=== PATIENT | male | born 1980 | race African-American/Black ===

== ENCOUNTER 2017-08-07 20:37 | Emergency (ER) | payer SELFPAY ==
[~2017-08-07] VITALS: Ht 185.4 cm; Wt 212.0 kg
[~2017-08-07 20:37] MED LIST: ALBU6.7H INH; AUGMENTIN PO; DOXY100T PO; PRED20 PO; Z.0.NO CURRENT MEDS
[2017-08-07 21:26] VITALS: BP 133/69; PULSE 105; RESP 23; TEMP 98.7; O2SAT 97
--- NOTE | 2017-08-07 21:28 | PD ---
HPI Chief Complaint: Complaint Time Seen by Provider: 21:19 Travel History International Travel<30 days: No Contact w/Intl Traveler<30days: No Traveled to known affect area: No History of Present Illness HPI 37-year-old male with recent history of CHF, hypertension, diabetes, presents emergency department for evaluation of swollen testicles. Patient states that 3 weeks ago he was "filling up with fluid." He had shortness of breath. He was discharged with Lasix which he has been taken however he ran out of these 3 days ago. He says since then he has developed worsening shortness of breath. He feels this is because he does not have inhaler. He tells me that his testicles have been swollen since his last episode of when he filled up with fluid, and they will not go down. He denies any injury. No significant pain. He has no urinary symptoms. He has no other symptoms to report. PFSH Past Medical History Cardiovascular Problems: Yes (HTN,) Diabetes: Yes (Metformin) Patient Takes Glucophage: Yes Hypertension: Yes Respiratory: Yes (Bronchitis) Tetanus Vaccination: < 5 Years Influenza Vaccination: No Past Surgical History Surgical History: No Previous Surgery Social History Alcohol Use: No Tobacco Use: No (quit 2 weeks ago 1PPD) Substance Use: Yes (Marijuana) Allergies-Medications (Allergen,Severity, Reaction): Coded Allergies: Sulfa (Sulfonamide Antibiotics) (Unverified Allergy, Unknown, 08/07/17) Reported Meds & Prescriptions Reported Meds & Active Scripts Active Proair Hfa 8.5 GM Inh (Albuterol Sulfate) 90 Mcg/Act Aer 2 Puff INH Q4HR PRN 108 mcg/actuation Potassium Chloride ER (Potassium Chloride) 20 Meq Tab 20 Meq PO DAILY Metformin (Metformin HCl) 1,000 Mg Tab 1,000 Mg PO BIDPC Lasix (Furosemide) 40 Mg Tab 40 Mg PO DAILY Reported Metformin (Metformin HCl) 1,000 Mg Tab 1,000 Mg PO BIDPC Levaquin (Levofloxacin) 500 Mg Tablet 500 Mg PO DAILY Lasix (Furosemide) 40 Mg Tab 40 Mg PO DAILY Potassium Chloride ER (Potassium Chloride) 20 Meq Tab 20 Meq PO DAILY Review of Systems Except as stated in HPI: all other systems reviewed are Neg Physical Exam Narrative GENERAL: Well-nourished male patient, ambulatory and in no acute distress SKIN: Focused skin assessment warm/dry. HEAD: Atraumatic. Normocephalic. EYES: Pupils equal and round. No scleral icterus. No injection or drainage. ENT: No nasal bleeding or discharge. Mucous membranes pink and moist. NECK: Trachea midline. No JVD. CARDIOVASCULAR: Elevated rate and rhythm. RESPIRATORY: No accessory muscle use. Diminished breath sounds equal bilaterally. GASTROINTESTINAL: Abdomen soft, non-tender, nondistended. Hepatic and splenic margins not palpable. GENITOURINARY: The testicles and shaft of the penis are edematous. No lesions or erythema. No urethral discharge. MUSCULOSKELETAL: No obvious deformities. No clubbing. No cyanosis. No edema. NEUROLOGICAL: Awake and alert. No obvious cranial nerve deficits. Motor grossly within normal limits. Normal speech. PSYCHIATRIC: Appropriate mood and affect; insight and judgment normal. Data Data Last Documented VS Vital Signs Date Time Temp Pulse Resp B/P (MAP) Pulse Ox O2 Delivery O2 Flow Rate FiO2 08/07/17 23:29 98.4 105 22 175/94 (121) 97 Nasal Cannula 2.00 Orders Orders Complete Blood Count With Diff (08/07/17 21:33) Comprehensive Metabolic Panel (08/07/17 21:33) B-Type Natriuretic Peptide (08/07/17 21:33) Act Partial Throm Time (Ptt) (08/07/17 21:33) Prothrombin Time / Inr (Pt) (08/07/17 21:33) Magnesium (Mg) (08/07/17 21:33) Ckmb (Isoenzyme) Profile (08/07/17 21:33) Troponin I (08/07/17 21:33) Iv Access Insert/Monitor (08/07/17 21:33) Electrocardiogram (08/07/17 21:33) Ecg Monitoring (08/07/17 21:33) Oximetry (08/07/17 21:33) Oxygen Administration (08/07/17 21:33) Chest, Single Ap (08/07/17 21:33) Sodium Chloride 0.9% Flush (Ns Flush) (08/07/17 21:45) Albuterol-Ipratropium Neb (Duoneb Neb) (08/07/17 21:45) Furosemide Inj (Lasix Inj) (08/07/17 23:00) Ed Discharge Order (08/07/17 23:28) Labs Laboratory Tests Test 08/07/17 21:05 White Blood Count 6.9 TH/MM3 Red Blood Count 5.68 MIL/MM3 Hemoglobin 14.4 GM/DL Hematocrit 45.4 % Mean Corpuscular Volume 79.9 FL Mean Corpuscular Hemoglobin 25.3 PG Mean Corpuscular Hemoglobin Concent 31.6 % Red Cell Distribution Width 15.8 % Platelet Count 334 TH/MM3 Mean Platelet Volume 7.4 FL Neutrophils (%) (Auto) 64.2 % Lymphocytes (%) (Auto) 20.8 % Monocytes (%) (Auto) 12.7 % Eosinophils (%) (Auto) 1.5 % Basophils (%) (Auto) 0.8 % Neutrophils # (Auto) 4.4 TH/MM3 Lymphocytes # (Auto) 1.4 TH/MM3 Monocytes # (Auto) 0.9 TH/MM3 Eosinophils # (Auto) 0.1 TH/MM3 Basophils # (Auto) 0.1 TH/MM3 CBC Comment DIFF FINAL Differential Comment Prothrombin Time 12.7 SEC Prothromb Time International Ratio 1.3 RATIO Activated Partial Thromboplast Time 26.6 SEC Blood Urea Nitrogen 8 MG/DL Creatinine 1.07 MG/DL Random Glucose 139 MG/DL Total Protein 8.0 GM/DL Albumin 3.0 GM/DL Calcium Level 8.7 MG/DL Magnesium Level 1.7 MG/DL Alkaline Phosphatase 80 U/L Aspartate Amino Transf (AST/SGOT) 27 U/L Alanine Aminotransferase (ALT/SGPT) 18 U/L Total Bilirubin 1.1 MG/DL Sodium Level 142 MEQ/L Potassium Level 4.3 MEQ/L Chloride Level 105 MEQ/L Carbon Dioxide Level 24.9 MEQ/L Anion Gap 12 MEQ/L Estimat Glomerular Filtration Rate 95 ML/MIN Total Creatine Kinase 99 U/L Troponin I 0.02 NG/ML B-Type Natriuretic Peptide 343 PG/ML [facility] Medical Decision Making Medical Screen Exam Complete: Yes Emergency Medical Condition: Yes Medical Record Reviewed: Yes Differential Diagnosis Hydrocele versus orchitis versus epididymitis versus CHF versus electrolyte abnormality versus pneumonia versus influenza versus bronchospasm Narrative Course 37-year-old male presents emergency department for evaluation. Patient appears short of breath. He does have diminished sounds throughout, possibly due to his size. His testicles and penis are also swollen. I discussed the patient with my attending physician who is also assessed the patient. We feel that the testicular edema secondary to fluid overload. Laboratory Tests Test 08/07/17 21:05 White Blood Count 6.9 TH/MM3 Red Blood Count 5.68 MIL/MM3 Hemoglobin 14.4 GM/DL Hematocrit 45.4 % Mean Corpuscular Volume 79.9 FL Mean Corpuscular Hemoglobin 25.3 PG Mean Corpuscular Hemoglobin Concent 31.6 % Red Cell Distribution Width 15.8 % Platelet Count 334 TH/MM3 Mean Platelet Volume 7.4 FL Neutrophils (%) (Auto) 64.2 % Lymphocytes (%) (Auto) 20.8 % Monocytes (%) (Auto) 12.7 % Eosinophils (%) (Auto) 1.5 % Basophils (%) (Auto) 0.8 % Neutrophils # (Auto) 4.4 TH/MM3 Lymphocytes # (Auto) 1.4 TH/MM3 Monocytes # (Auto) 0.9 TH/MM3 Eosinophils # (Auto) 0.1 TH/MM3 Basophils # (Auto) 0.1 TH/MM3 CBC Comment DIFF FINAL Differential Comment Prothrombin Time 12.7 SEC Prothromb Time International Ratio 1.3 RATIO Activated Partial Thromboplast Time 26.6 SEC Blood Urea Nitrogen 8 MG/DL Creatinine 1.07 MG/DL Random Glucose 139 MG/DL Total Protein 8.0 GM/DL Albumin 3.0 GM/DL Calcium Level 8.7 MG/DL Magnesium Level 1.7 MG/DL Alkaline Phosphatase 80 U/L Aspartate Amino Transf (AST/SGOT) 27 U/L Alanine Aminotransferase (ALT/SGPT) 18 U/L Total Bilirubin 1.1 MG/DL Sodium Level 142 MEQ/L Potassium Level 4.3 MEQ/L Chloride Level 105 MEQ/L Carbon Dioxide Level 24.9 MEQ/L Anion Gap 12 MEQ/L Estimat Glomerular Filtration Rate 95 ML/MIN Total Creatine Kinase 99 U/L Troponin I 0.02 NG/ML B-Type Natriuretic Peptide 343 PG/ML Last Impressions Chest X-Ray 08/07/172132 Signed Impressions: CONCLUSION: Negative examination. Findings are discussed with my attending physician. Patient is given 80 mg IV Lasix. He will be given a refill of his medication. He is encouraged to establish care with a primary care provider. He agrees to return immediately with acute worsening symptoms Diagnosis Primary Impression: Swollen testicle Additional Impression: CHF (congestive heart failure) Qualified Codes: I50.9 - Heart failure, unspecified Referrals: [facility] Primary Care Physician Patient Instructions: General Instructions, Heart Failure (ED) Additional Instructions: It is important that you establish care with a primary care provider Cardiology evaluation is strongly recommended Return immediately with acute worsening of symptoms Med/Other Pt SpecificInfo: Prescription(s) given Scripts Albuterol 8.5 GM Inh (Proair Hfa 8.5 GM Inh) 90 Mcg/Act Aer 2 PUFF INH Q4HR Y for SHORTNESS OF BREATH, #1 INHALER 0 Refills 108 mcg/actuation Prov: Jasmin Hodge 08/07/17 Potassium Chloride ER (Potassium Chloride ER) 20 Meq Tab 20 MEQ PO DAILY for Electrolyte Replacement, #30 TAB 0 Refills Prov: Jasmin Hodge 08/07/17 Metformin (Metformin) 1,000 Mg Tab 1000 MG PO BIDPC for Blood Sugar Management, #60 TAB 0 Refills Prov: Jasmin Hodge 08/07/17 Furosemide (Lasix) 40 Mg Tab 40 MG PO DAILY, #30 TAB 0 Refills Prov: Jasmin Hodge 08/07/17 Disposition: 01 DISCHARGE HOME Condition: Stable Jasmin Hodge August 07, 2017 21:28
[2017-08-07] MEDS ORDERED: SODIUM CHLORIDE 0.9% FLUSH 10 ML FLUSH IVF PRN (21:45)
--- NOTE | 2017-08-07 21:56 | RADRPT ---
EXAM DATE: 08/07/2017 9:51 PM EDT AGE/SEX: 37 years / Male INDICATIONS: Shortness of breath. CLINICAL DATA: This is the patient's initial encounter. Patient reports that signs and symptoms have been present for 3 days and indicates a pain score of 0/10. MEDICAL/SURGICAL HISTORY: None. None. COMPARISON: None. FINDINGS: 2 portable frontal views of the chest demonstrate the lungs to be symmetrically aerated without evide nce of mass, infiltrate or effusion. The cardiomediastinal contours are unremarkable. Osseous struc tures are intact. CONCLUSION: Negative examination. Electronically signed by: Clayton Hammonds MD 08/07/2017 9:55 PM EDT
[2017-08-07] MEDS ORDERED: POTA-163 PO ×2 (22:06→23:31)
[2017-08-07] MEDS ORDERED: LEVA500T33 PO (22:06)
[2017-08-07] MEDS ORDERED: METF1000 PO ×2 (22:06→23:31)
[2017-08-07] MEDS ORDERED: FURO1TAB60 PO ×2 (22:06→23:31)
[2017-08-07 22:09] LABS: AUTOMATED NEUTROPHIL # 4.4 TH/MM3 (1.8-7.7); BASOPHIL # 0.1 TH/MM3 (0-0.2); BASOPHIL % 0.8 % (0.0-2.0); EOSINOPHIL # 0.1 TH/MM3 (0-0.4); EOSINOPHIL % 1.5 % (0.0-4.0); HEMATOCRIT 45.4 % (39.0-51.0); HEMOGLOBIN 14.4 GM/DL (13.0-17.0); LYMPH % 20.8 % (9.0-44.0); LYMPHOCYTE # 1.4 TH/MM3 (1.0-4.8); MEAN CELL VOLUME 79.9 FL (80.0-100.0); MEAN CORPUSCULAR HEMOGLOBIN 25.3 PG (27.0-34.0); MEAN CORPUSCULAR HGB CONC 31.6 % (32.0-36.0); MEAN PLATELET VOLUME 7.4 FL (7.0-11.0); MONO % 12.7 % (0.0-8.0); MONOCYTE # 0.9 TH/MM3 (0-0.9); NEUT % 64.2 % (16.0-70.0); PLATELET COUNT 334 TH/MM3 (150-450); RED BLOOD COUNT 5.68 MIL/MM3 (4.50-5.90); RED CELL DISTRIBUTION WIDTH 15.8 % (11.6-17.2); WHITE BLOOD COUNT 6.9 TH/MM3 (4.0-11.0)
[2017-08-07] MEDS: RESP: ALBUTEROL 2.5 MG/IPRATROPIUM 0.5 MG NEB (SCH) INH (22:14)
[2017-08-07 22:20] LABS: INTERNATIONAL NORMALIZED RATIO 1.3 RATIO; PROTHROMBIN TIME - PATIENT 12.7 SEC (9.8-11.6)
[2017-08-07 22:34] LABS: ALT (GPT) 18 U/L (12-78); AST (GOT) 27 U/L (15-37); BICARBONATE 24.9 MEQ/L (21.0-32.0); BLOOD UREA NITROGEN 8 MG/DL (7-18); CALCIUM 8.7 MG/DL (8.5-10.1); CHLORIDE 105 MEQ/L (98-107); CREATININE 1.07 MG/DL (0.60-1.30); GLOMERULAR FILTRATION RATE 95 ML/MIN (>89); GLUCOSE,RANDOM 139 MG/DL (74-106); MAGNESIUM 1.7 MG/DL (1.5-2.5); SODIUM (NA) 142 MEQ/L (136-145)
[2017-08-07 22:37] LABS: ALKALINE PHOSPHATASE 80 U/L (45-117); TOTAL BILIRUBIN ADULT 1.1 MG/DL (0.2-1.0); TROPONIN I 0.02 NG/ML (0.02-0.05)
[2017-08-07] MEDS ORDERED: FUROSEMIDE 100 MG/10 ML VIAL IV PUSH ONE (23:00)
--- NOTE | 2017-08-07 23:15 | PD ---
Physical Exam Narrative I, Dr. Bolton, have reviewed the advance practice practitioner's documentation and am in agreement, met with the patient face to face, made the diagnosis, and the medical decision making was done by me. *My assessment and Findings: CHF exacerbation vs. fluid overload vs. pneumonia 37yo morbidly obese male with CHF here with c/o sob for a few days. Pt said he normally has scrotal edema but it is getting worst. Denies any testicular pain. Denies any chest pain. Labs reviewed, no leukocytosis. H/H normal. K normal at 4.3. BNP only mildly elevated at 343. CXR negative. Clinically he does have lower extremity edema and takes furosemide 40mg daily. He does feel more edematous so will give lasix 80mg IV and reevaluated. Pt saturating well. Pt feels better after and instructed him to follow up with his primary care physician. Data Data Last Documented VS Vital Signs Date Time Temp Pulse Resp B/P (MAP) Pulse Ox O2 Delivery O2 Flow Rate FiO2 08/07/17 23:29 98.4 105 22 175/94 (121) 97 Nasal Cannula 2.00 Orders Orders Complete Blood Count With Diff (08/07/17 21:33) Comprehensive Metabolic Panel (08/07/17 21:33) B-Type Natriuretic Peptide (08/07/17 21:33) Act Partial Throm Time (Ptt) (08/07/17 21:33) Prothrombin Time / Inr (Pt) (08/07/17 21:33) Magnesium (Mg) (08/07/17 21:33) Ckmb (Isoenzyme) Profile (08/07/17 21:33) Troponin I (08/07/17 21:33) Iv Access Insert/Monitor (08/07/17 21:33) Electrocardiogram (08/07/17 21:33) Ecg Monitoring (08/07/17 21:33) Oximetry (08/07/17 21:33) Oxygen Administration (08/07/17 21:33) Chest, Single Ap (08/07/17 21:33) Sodium Chloride 0.9% Flush (Ns Flush) (08/07/17 21:45) Albuterol-Ipratropium Neb (Duoneb Neb) (08/07/17 21:45) Furosemide Inj (Lasix Inj) (08/07/17 23:00) Ed Discharge Order (08/07/17 23:28) Labs Laboratory Tests Test 08/07/17 21:05 White Blood Count 6.9 TH/MM3 Red Blood Count 5.68 MIL/MM3 Hemoglobin 14.4 GM/DL Hematocrit 45.4 % Mean Corpuscular Volume 79.9 FL Mean Corpuscular Hemoglobin 25.3 PG Mean Corpuscular Hemoglobin Concent 31.6 % Red Cell Distribution Width 15.8 % Platelet Count 334 TH/MM3 Mean Platelet Volume 7.4 FL Neutrophils (%) (Auto) 64.2 % Lymphocytes (%) (Auto) 20.8 % Monocytes (%) (Auto) 12.7 % Eosinophils (%) (Auto) 1.5 % Basophils (%) (Auto) 0.8 % Neutrophils # (Auto) 4.4 TH/MM3 Lymphocytes # (Auto) 1.4 TH/MM3 Monocytes # (Auto) 0.9 TH/MM3 Eosinophils # (Auto) 0.1 TH/MM3 Basophils # (Auto) 0.1 TH/MM3 CBC Comment DIFF FINAL Differential Comment Prothrombin Time 12.7 SEC Prothromb Time International Ratio 1.3 RATIO Activated Partial Thromboplast Time 26.6 SEC Blood Urea Nitrogen 8 MG/DL Creatinine 1.07 MG/DL Random Glucose 139 MG/DL Total Protein 8.0 GM/DL Albumin 3.0 GM/DL Calcium Level 8.7 MG/DL Magnesium Level 1.7 MG/DL Alkaline Phosphatase 80 U/L Aspartate Amino Transf (AST/SGOT) 27 U/L Alanine Aminotransferase (ALT/SGPT) 18 U/L Total Bilirubin 1.1 MG/DL Sodium Level 142 MEQ/L Potassium Level 4.3 MEQ/L Chloride Level 105 MEQ/L Carbon Dioxide Level 24.9 MEQ/L Anion Gap 12 MEQ/L Estimat Glomerular Filtration Rate 95 ML/MIN Total Creatine Kinase 99 U/L Troponin I 0.02 NG/ML B-Type Natriuretic Peptide 343 PG/ML MDM Supervised Visit with COLLETTE: Yes Diagnosis Primary Impression: Fluid overload Qualified Codes: E87.70 - Fluid overload, unspecified Scripts Albuterol 8.5 GM Inh (Proair Hfa 8.5 GM Inh) 90 Mcg/Act Aer 2 PUFF INH Q4HR Y for SHORTNESS OF BREATH, #1 INHALER 0 Refills 108 mcg/actuation Prov: Jasmin Hodge 08/07/17 Potassium Chloride ER (Potassium Chloride ER) 20 Meq Tab 20 MEQ PO DAILY for Electrolyte Replacement, #30 TAB 0 Refills Prov: Jasmin Hodge 08/07/17 Metformin (Metformin) 1,000 Mg Tab 1000 MG PO BIDPC for Blood Sugar Management, #60 TAB 0 Refills Prov: Jasmin Hodge 08/07/17 Furosemide (Lasix) 40 Mg Tab 40 MG PO DAILY, #30 TAB 0 Refills Prov: Jasmin Hodge 08/07/17 Rosemary Bolton DO August 07, 2017 23:15
[2017-08-07 23:29] VITALS: BP 175/94; PULSE 105; RESP 22; TEMP 98.4; O2SAT 97
[2017-08-07] MEDS ORDERED: ALBUAER3 INH (23:31)
--- NOTE | 2017-08-08 15:26 | EKG ---
Date Performed: 08/07/2017 Time Performed: 22:11:35 PTAGE: 37 years EKG: Sinus rhythm WITH BASELINE ARTIFACT ST DEVIATION AND MODERATE T-WAVE ABNORMALITY, CONSIDER LATERAL ISCHEMIA ABNOR MAL ECG NO PREVIOUS TRACING DOCTOR: Mack Page Interpretating Date/Time 08/08/2017 15:25:43
== END 2017-08-07 23:47 | disposition home or self-care (01) ==
LOC: NEPD 20:37
DX: I11.0 Hypertensive heart disease with heart failure (principal); I50.9 Heart failure, unspecified; F12.90 Cannabis use, unspecified, uncomplicated; E11.9 Type 2 diabetes mellitus without complications; Z79.84 Long term (current) use of oral hypoglycemic drugs; Z87.891 Personal history of nicotine dependence
CPT/HCPCS: 71045; 80053; 82550; 83735; 83880; 84484; 85025; 85610; 85730; 93005; 94640; 94664; 96374; 99285; J1940